=== PATIENT | female | born 1945 | race Caucasian/White ===

== ENCOUNTER 2016-11-23 15:07 | Inpatient (IN) | payer OTHER, MEDICARE ==
[~2016-11-23] VITALS: Ht 160 cm; Wt 62.1 kg
[2016-11-23 16:12] LABS: HEMATOCRIT 42.1 % (36.0-46.0); MCH 30.1 PG (29.0-34.0); MCHC 34.2 G/DL (30.0-36.0); MCV 87.9 FL (83-99); MEAN PLAT.VOLUME 9.8 uM^3 (9.5-12.4); PLATELET COUNT 297 K/uL (156-360); RBC DIS.WIDTH-SD 38.5 % (39-53); RED BLOOD COUNT 4.79 M/uL (3.80-5.20); WHITE BLOOD COUNT 9.1 K/uL (4.1-10.2)
[2016-11-23 16:22] LABS: CHLORIDE 101 mEq/L (99-109); POTASSIUM 3.5 mEq/L (3.7-5.4); SODIUM 138 mEq/L (136-147)
[2016-11-23 16:23] LABS: GLUCOSE 109 mg/dL (70-99)
[2016-11-23 16:25] LABS: ANION GAP 12 MEQ/L (2-14)
[2016-11-23 16:27] LABS: GFR ESTIMATE (CALCULATED) > 59 mL/min/
[2016-11-23 16:28] LABS: UREA NITROGEN (BUN) 13 mg/dL (9-23)
[2016-11-23 16:34] LABS: TROP-I INTERPRETATION NEGATIVE; TROPONIN-I 0.02 ng/mL (0.0-0.30)
[2016-11-23] MEDS ORDERED: CEFTIN500 MG PO (19:02)
[2016-11-23] MEDS ORDERED: ATENOLOL50 MG PO (19:02)
[2016-11-23] MEDS ORDERED: CLARITIN,ALAVAR10 MG PO (19:03)
[2016-11-23] MEDS ORDERED: BENICAR40 MG PO (19:03)
[2016-11-23] MEDS ORDERED: PREMARIN VAGI42.5 GM VG (19:03)
[2016-11-23] MEDS ORDERED: AMLODIPINE BESYL5 MG PO (19:03)
[2016-11-23] MEDS ORDERED: TYLENOL EXTRA500 MG PO (19:04)
[2016-11-23] MEDS ORDERED: LO-DOSE ASPIRIN81 M2 PO (19:04)
[2016-11-23 23:04] VITALS: BP 163/80
[2016-11-23 23:11] LABS: HDL CHOLESTEROL 50 MG/DL (Desirable>=50); LDL CHOLESTEROL 179 mg/dL (Desirable<100); NON-HDL CHOLESTEROL 200 mg/dL (Desirable<160); TOTAL CHOLESTEROL 250 mg/dL (Desirable<200); TRIGLYCERIDES 103 MG/DL (Normal: <150)
[2016-11-24 04:00] VITALS: BP 168/81
[2016-11-24 07:36] VITALS: BP 159/78
[2016-11-24 11:10] VITALS: BP 157/74
[2016-11-24 15:38] VITALS: BP 125/56
[2016-11-24 19:53] VITALS: BP 142/76
[2016-11-24 23:46] VITALS: BP 133/74
[2016-11-25 04:11] VITALS: BP 122/69
[2016-11-25 06:58] LABS: Estimated Average Glucose 123 mg/dL (70-123); HEMOGLOBIN A1c (GLYCOHEMOGLOB) 5.9 % HGB (Below 5.7)
[2016-11-25 07:54] VITALS: BP 134/70
[2016-11-25] MEDS ORDERED: PREDNISONE10 MG PO (08:29)
== END 2016-11-25 10:16 | disposition home or self-care (01) | DRG 103 ==
LOC: EME 15:07 → 5SOUTH 21:26 → EDOF 21:26 → 5SOUTH 22:49
PROVIDERS: Emergency Medicine; Internal Medicine
DX: G43.909 Migraine, unspecified, not intractable, without status migrainosus (principal); K21.9 Gastro-esophageal reflux disease without esophagitis; I10 Essential (primary) hypertension; H53.2 Diplopia
CPT/HCPCS: 36415; 70496; 70551; 80048; 80061; 83036; 84484; 85025; 85027; 85651; 99281; 99284; J7512